=== PATIENT | female | born 1990 | race Asian ===

== ENCOUNTER 2019-05-19 05:35 | Inpatient (IN) ==
[2019-05-19] MEDS ORDERED: PEPCID IV PRN (06:20)
[2019-05-19] MEDS ORDERED: TYLENOL PO PRN (06:20)
[2019-05-19] MEDS ORDERED: PEPCID PO ONE (06:20)
[2019-05-19] MEDS ORDERED: PEPCID PO PRN (06:20)
[2019-05-19] MEDS ORDERED: ZOFRAN IV PRN (06:20)
[2019-05-19] MEDS ORDERED: STADOL IV PRN (06:20)
[2019-05-19] MEDS ORDERED: REGLAN PO ONE (06:20)
[2019-05-19 06:29] LABS: URINE SOURCE VOIDED
[2019-05-19] MEDS ORDERED: PITOCIN 30 UNITS/NS 30 UNIT/500 ML IV.SOLN IV SCH ×2 (06:30→16:00)
[2019-05-19] MEDS ORDERED: SODIUM CHLORIDE 0.9% INJ SCH (06:30)
[2019-05-19 06:37] LABS: BILIRUBIN URINE NEGATIVE (NEGATIVE); BLOOD URINE NEGATIVE (NEGATIVE); CLARITY SL. CLOUDY (CLEAR); COLOR YELLOW; GLUCOSE URINE NEGATIVE (NEGATIVE); KETONE URINE NEGATIVE (NEGATIVE); LEUKOCYTES URINE TRACE (NEGATIVE); NITRITE URINE NEGATIVE (NEGATIVE); PROTEIN URINE NEGATIVE (NEGATIVE); UROBILINOGEN URINE NORMAL
[2019-05-19 06:57] LABS: UR AMPHETAMINES QUAL NONE DETECTED (NONE DETECT); UR BARBITUATES QUAL NONE DETECTED (NONE DETECT); UR BENZODIAZEPIN QUAL NONE DETECTED (NONE DETECT); UR CANNABINOIDS QUAL NONE DETECTED (NONE DETECT); UR COCAINE QUAL NONE DETECTED (NONE DETECT); UR METHADONE QUAL NONE DETECTED (NONE DETECT); UR METHAMPHETAMINE QUAL NONE DETECTED (NONE DETECT); UR OPIATES QUAL NONE DETECTED (NONE DETECT); UR OXYCODONE QUAL NONE DETECTED (NONE DETECT); UR PCP QUAL NONE DETECTED (NONE DETECT); UR PROPOXYPHENE QUAL NONE DETECTED (NONE DETECT); UR TCA QUAL NONE DETECTED (NONE DETECT)
[2019-05-19] MEDS: LR 1,000 ML IV SCH ×4 (07:05→14:23)
[2019-05-19 07:29] LABS: BASO# 0.01 X1000 (0.0-0.2); BASO% 0.1 % (0.0-0.8); EOS# 0.06 X1000 (0.0-0.7); EOS% 0.6 % (0.0-10.0); HEMATOCRIT 37.4 % (37.0-47.0); HEMOGLOBIN 12.8 g/dL (12.0-16.0); IMM GRAN# 0.04 X1000 (0.0-0.04); IMM GRAN% 0.4 % (0.0-0.5); LYMPH% 14.6 % (20.5-51.1); MCH 33.6 PG (27-31); MCHC 34.2 g/dL (33-37); MCV 98.2 FL (81-99); MONO% 8.4 % (1.7-9.3); MPV 10.7 FL (7.4-10.4); NEUT# 7.25 X1000 (1.4-6.5); NEUT% 75.9 % (42.2-75.2); PLT 181 X1000 (130-400); RBC 3.81 XMIL (4.2-5.4); RDW 12.8 % (11.5-14.5); WBC 9.56 X1000 (4.8-10.8)
[2019-05-19] MEDS ORDERED: FENTANYL-BUPIV-NS 2 MCG-0.1% 200 ML EPIDURAL PRN (08:45)
[2019-05-19] MEDS ORDERED: NAROPIN 0.2% INJ ONE (09:00)
[2019-05-19] MEDS ORDERED: XYLOCAINE-MPF 1% INJ PRN ×2 (09:23→15:57)
[2019-05-19] MEDS ORDERED: MINERAL OIL ONE (09:24)
--- NOTE | 2019-05-19 09:38 | HISTORY AND PHYSICAL ---
HISTORY OF PRESENT ILLNESS: The patient is a 28-year-old female, , at 39 weeks gestation with a favorable cervix for elective induction of labor. care is unremarkable. Group B strep culture was negative. The patient is a citizen of [place] and transferred her care here at 31 weeks gestation. PAST MEDICAL HISTORY: Unremarkable. PAST SURGICAL HISTORY: None. PAST OB HISTORY: , proven to 8 pounds. [employer] HISTORY: Menarche at age 12. FAMILY HISTORY: Unremarkable. REVIEW OF SYSTEMS: All systems reviewed and noncontributory. SOCIAL HISTORY: Tobacco use none. Alcohol use none. MEDICATIONS: vitamins. ALLERGIES: Cephalosporin. PHYSICAL EXAMINATION: VITAL SIGNS: Height 5 feet 11 inches, weight 192 pounds, temperature 96.9 degrees, blood pressure 97/66, pulse of 76, respirations 20. heart rate in the 140s with positive accelerations. HEENT: Pupils equal, round, reactive to light and accommodation. Extraocular movements intact. Oropharynx clear. NECK: Supple. No thyromegaly. LUNGS: Clear to auscultation. HEART: Regular rate and rhythm. ABDOMEN: Gravid, nontender. PELVIC: Cervix was 4 cm dilated, 80% effaced, -1 station. EXTREMITIES: No clubbing, cyanosis, or edema noted. NEUROLOGIC: Cranial nerves 2 to 12 grossly intact. Motor 5/5. ASSESSMENT/PLAN: A 28-year-old female, G2, P1, at 39 weeks gestation by early ultrasound whose has a favorable cervix for elective induction of labor. The patient's group B strep status is negative. cc: Jeffrey Valentin III, MD
[2019-05-19] MEDS ORDERED: ATARAX PO PRN (15:57)
[2019-05-19] MEDS ORDERED: M-M-R II VACCINE SUBQ ONE (15:57)
[2019-05-19] MEDS ORDERED: NORCO-5 PO PRN (15:57)
[2019-05-19] MEDS ORDERED: PITOCIN IM PRN (15:57)
[2019-05-19] MEDS ORDERED: MINERAL OIL PO PRN (15:57)
[2019-05-19] MEDS ORDERED: BOOSTRIX VACCINE IM ONE (15:57)
[2019-05-19] MEDS ORDERED: BENADRYL IV PRN (15:57)
[2019-05-19] MEDS ORDERED: BENADRYL PO PRN (15:57)
[2019-05-19] MEDS ORDERED: CYTOTEC PO PRN (15:57)
[2019-05-19] MEDS ORDERED: AMBIEN PO PRN (15:57)
[2019-05-19] MEDS ORDERED: HYDROXYZINE IM PRN (15:57)
[2019-05-19] MEDS ORDERED: PITOCIN 20 UNITS/NS 20 UNITS/1,000 ML IV.SOLN IV SCH (16:00)
--- NOTE | 2019-05-19 17:30 | OPERATIVE NOTE ---
PROCEDURE DATE: 05/19/2019 VAGINAL DELIVERY NOTE: DATE OF DELIVERY: 05/19/2019 DESCRIPTION OF PROCEDURE: Patient progressed to complete pushing, and had spontaneous vaginal delivery of a female , 7 pounds 7 ounces with 's of 9 and 10 at 1522 on 05/19/2019 over a second-degree midline episiotomy. OP presentation was noted. Nuchal cord x1 was reduced over the perineum easily. Cord blood sample was obtained at this time. Placenta was then delivered intact with 3-vessel cord. Second-degree midline episiotomy was repaired with 2-0 and 3-0 chromic and 2-0 Vicryl. ANESTHESIA: Epidural. ESTIMATED BLOOD LOSS: 200 mL. COUNTS: All counts were correct. cc: Jeffrey Valentin III, MD
[2019-05-19] MEDS: MOTRIN PO PRN (18:08)
[2019-05-19] MEDS: PERI MEDS (DERMOPLAST/NUPERCAINAL/TUCKS) MISC PRN (18:08)
[2019-05-19] MEDS: NORCO-10 PO PRN (18:57)
[2019-05-19] MEDS: PERICOLACE PO SCH (22:58)
[2019-05-20] MEDS: PERI MEDS (DERMOPLAST/NUPERCAINAL/TUCKS) MISC PRN (01:18)
--- NOTE | 2019-05-20 06:01 | OB/GYN PROGRESS NOTE ---
Progress Note OB - . OB Progress Note: Vital Signs - 24 hr 05/19/19 07:52 05/19/19 11:05 05/19/19 12:13 Temperature 96.9 F L 96.8 F L 97.5 F L Pulse Rate 76 59 L 68 Respiratory Rate 20 20 20 Blood Pressure 97/66 111/67 123/59 Blood Pressure [Left Arm] O2 Sat by Pulse Oximetry 97 99 99 05/19/19 16:00 05/19/19 16:10 05/19/19 16:20 Temperature 97.8 F Pulse Rate 93 H 72 72 Respiratory Rate 20 20 20 Blood Pressure Blood Pressure [Left Arm] 122/72 112/56 106/58 O2 Sat by Pulse Oximetry 100 100 100 05/19/19 16:30 05/19/19 16:40 05/19/19 16:50 Temperature Pulse Rate 70 65 72 Respiratory Rate 20 20 20 Blood Pressure Blood Pressure [Left Arm] 113/66 106/59 106/59 O2 Sat by Pulse Oximetry 100 100 100 05/19/19 17:00 05/19/19 18:00 05/19/19 18:26 Temperature 98.2 F Pulse Rate 67 90 95 H Respiratory Rate 20 20 20 Blood Pressure 100/58 109/53 101/55 Blood Pressure [Left Arm] 100/58 O2 Sat by Pulse Oximetry 100 98 97 05/19/19 20:00 05/20/19 00:00 05/20/19 05:29 Temperature 96.8 F L 97.2 F L 96.9 F L Pulse Rate 78 59 L 70 Respiratory Rate 20 20 18 Blood Pressure 99/58 102/66 93/57 Blood Pressure [Left Arm] O2 Sat by Pulse Oximetry 95 100 Laboratory Results - last 24 hr 05/19/19 05/19/19 05/19/19 05:35 05:35 07:05 WBC RBC Hgb Hct MCV MCH MCHC RDW Std Deviation Plt Count MPV Immature Gran % (Auto) Neut % (Auto) Lymph % (Auto) [place] % (Auto) Eos % (Auto) Baso % (Auto) Immature Gran # (Auto) Neut # (Auto) Lymph # (Auto) [place] # (Auto) Eos # (Auto) Baso # (Auto) Urine Source VOIDED Urine Color YELLOW Urine Clarity SL. CLOUDY A Urine pH 7.0 Ur Specific [place] 1.010 Urine Protein NEGATIVE Urine Ketones NEGATIVE Urine Blood NEGATIVE Urine Nitrite NEGATIVE Urine Bilirubin NEGATIVE Urine Urobilinogen NORMAL Urine WBC TRACE A Urine Glucose NEGATIVE Urine Opiates Screen NONE DETECTED Ur Oxycodone Screen NONE DETECTED Urine Methadone Screen NONE DETECTED U Propoxyphene Qual NONE DETECTED Ur Barbituates Screen NONE DETECTED Ur Tricyclics Screen NONE DETECTED Ur Phencyclidine Scrn NONE DETECTED Ur Amphetamines Screen NONE DETECTED U Methamphetamines Scrn NONE DETECTED U Benzodiazepines Scrn NONE DETECTED Urine Cocaine Screen NONE DETECTED U Cannabinoids Screen NONE DETECTED RPR NON-REACTIVE 05/19/19 07:05 WBC 9.56 RBC 3.81 L Hgb 12.8 Hct 37.4 MCV 98.2 MCH 33.6 H MCHC 34.2 RDW Std Deviation 12.8 Plt Count 181 MPV 10.7 H Immature Gran % (Auto) 0.4 Neut % (Auto) 75.9 H Lymph % (Auto) 14.6 L [place] % (Auto) 8.4 Eos % (Auto) 0.6 Baso % (Auto) 0.1 Immature Gran # (Auto) 0.04 Neut # (Auto) 7.25 H Lymph # (Auto) 1.40 [place] # (Auto) 0.80 H Eos # (Auto) 0.06 Baso # (Auto) 0.01 Urine Source Urine Color Urine Clarity Urine pH Ur Specific [place] Urine Protein Urine Ketones Urine Blood Urine Nitrite Urine Bilirubin Urine Urobilinogen Urine WBC Urine Glucose Urine Opiates Screen Ur Oxycodone Screen Urine Methadone Screen U Propoxyphene Qual Ur Barbituates Screen Ur Tricyclics Screen Ur Phencyclidine Scrn Ur Amphetamines Screen U Methamphetamines Scrn U Benzodiazepines Scrn Urine Cocaine Screen U Cannabinoids Screen RPR The pt is doing well. pain controlled minimal lochia unsure about control O VSSAF Gen: AAOx3 NAD CV: RRR no g/m/r Lungs: CTAB no w/r/r Abd: +BS soft NT/ND fundus firm at u-1 Ext: no c/c/e Labs: CBC pending A: PPD#1 s/p P: Cont pp mgmt
[2019-05-20] MEDS: NORCO-10 PO PRN (06:29)
[2019-05-20] MEDS: MOTRIN PO PRN ×2 (06:30→23:28)
[2019-05-20 06:48] LABS: BASO# 0.01 X1000 (0.0-0.2); BASO% 0.1 % (0.0-0.8); EOS# 0.02 X1000 (0.0-0.7); EOS% 0.2 % (0.0-10.0); HEMATOCRIT 34.8 % (37.0-47.0); HEMOGLOBIN 11.7 g/dL (12.0-16.0); IMM GRAN# 0.03 X1000 (0.0-0.04); IMM GRAN% 0.3 % (0.0-0.5); LYMPH# 1.58 X1000 (1.2-3.4); LYMPH% 14.3 % (20.5-51.1); MCHC 33.6 g/dL (33-37); MONO# 0.69 X1000 (0.11-0.59); MONO% 6.2 % (1.7-9.3); NEUT# 8.72 X1000 (1.4-6.5); NEUT% 78.9 % (42.2-75.2); PLT 163 X1000 (130-400); RBC 3.55 XMIL (4.2-5.4); RDW 12.8 % (11.5-14.5); WBC 11.05 X1000 (4.8-10.8)
[2019-05-20] MEDS: PERICOLACE PO SCH (20:42)
[2019-05-21 09:10] VITALS: BP 108/65
[2019-05-21] MEDS: PERI MEDS (DERMOPLAST/NUPERCAINAL/TUCKS) MISC PRN (12:49)
--- NOTE | 2019-05-21 14:31 | DISCHARGE SUMMARY ---
ADMISSION DATE: 05/19/2019 DISCHARGE DATE: 05/21/2019 ADMISSION DIAGNOSIS: Intrauterine 39 weeks with favorable cervix for induction of labor. FINAL DIAGNOSIS: 1. Intrauterine 39 weeks with favorable cervix for induction of labor. 2. Vaginal delivery of a female 7 pound 7 ounces with Apgars of 9 and 10 at 1522 on 05/19/2019. PROCEDURES: Spontaneous vaginal delivery and second-degree midline episiotomy with repair. BRIEF HISTORY: The patient is a 28-year-old female G 2 P 1 at 39 weeks gestation with favorable cervix for elective induction of labor. care unremarkable, group B strep culture was negative. The patient is a citizen of [place] and had transferred care at roughly 31 weeks gestation. PAST MEDICAL HISTORY: Unremarkable. PAST SURGICAL HISTORY: None. PAST OB HISTORY: G 2 P 1. Previous child 8 pounds. [employer] RN HISTORY: Menarche at age 12. FAMILY HISTORY: Unremarkable. REVIEW OF SYSTEMS: All systems were reviewed and noncontributory. SOCIAL HISTORY: Tobacco use none. Alcohol use none. MEDICATIONS: vitamins. ALLERGIES: Cephalosporins. PHYSICAL EXAMINATION: VITAL SIGNS: Height 5 feet 11 inches, weight 192 pounds, temperature 96.9 degrees, blood pressure 97/66, pulse of 76, respirations 20. heart rate in the 140s with positive accelerations. HEENT: Pupils equal, round, reactive to light and accommodation. Extraocular movements intact. Oropharynx clear. NECK: Supple. No thyromegaly. LUNGS: Clear to auscultation. HEART: Regular rate and rhythm. ABDOMEN: Gravid, nontender. PELVIC EXAM: Cervix was 4 cm dilated, 80% effaced, -1 station. EXTREMITIES: No clubbing, cyanosis, or edema noted. NEUROLOGIC: Cranial nerves II through XII grossly intact. Motor 5/5. DTRs 1+ bilaterally. ASSESSMENT AND PLAN: A 28-year-old female, 2, para 1, at 39 weeks gestation by early ultrasound, who has a favorable cervix for elective induction of labor. Group B strep culture was negative. Anticipate vaginal delivery. HOSPITAL COURSE: The patient has had a spontaneous vaginal delivery of a female infant 7 pounds 7 ounces with Apgars of 9 and 10 at 1522 on 05/19/2019 over second-degree midline episiotomy. OP presentation was noted. Nuchal cord x1 was reduced easily over the perineum. Second-degree midline episiotomy was repaired in the usual fashion and her hemoglobin was 11.7 and hematocrit was 34.8. The patient did well in her course and on day number 2 she had stable vital signs and was afebrile and felt she could be discharged home at this time. DISCHARGE PLAN: The patient will be discharged home, follow up in 5-6 weeks for check. The patient was given instructions for pelvic rest for 6 weeks. DISCHARGE MEDICATIONS: Motrin 800 mg, Colace 100 mg, and [place] 5 dispense 20 with no refills. cc: Jeffrey Valentin III, MD
== END 2019-05-21 13:10 | disposition home or self-care (01) | DRG 807 ==
LOC: P.LD 05:35
PROVIDERS: ADMIT Obstetrics & Gynecology; ATTEND Obstetrics & Gynecology
CPT/HCPCS: 80104; 80301; 80305; 81003; 85025; 86592; A9270; G0431; G0434; G0477; J2590; J2795; J7120